=== PATIENT | female | born 1985 | race African-American/Black ===

== ENCOUNTER 2017-05-28 15:20 | Emergency (ER) | payer MEDICAID ==
[~2017-05-28] VITALS: Ht 152.4 cm; Wt 73.9 kg
[2017-05-28 15:58] VITALS: BP 112/71
== END 2017-05-28 17:01 | disposition home or self-care (01) ==
LOC: ER 15:23
DX: J02.9 Acute pharyngitis, unspecified (principal); J06.9 Acute upper respiratory infection, unspecified

== ENCOUNTER 2017-05-29 00:21 | Emergency (ER) | payer MEDICAID ==
[~2017-05-29] VITALS: Ht 152.4 cm; Wt 73.9 kg
[2017-05-29 03:00] VITALS: BP 112/76
== END 2017-05-29 04:54 | disposition home or self-care (01) ==
LOC: ER 00:21
DX: J06.9 Acute upper respiratory infection, unspecified (principal)